=== PATIENT | male | born 1950 | race Caucasian/White ===

== ENCOUNTER 2018-02-05 08:11 | Day surgery (SDC) | payer OTHER ==
[~2018-02-05] VITALS: Ht 180.3 cm; Wt 147.4 kg
[~2018-02-05 08:11] MED LIST: ALBU90OI61 INH; AMLO10 PO; ASPI81CH PO; Aspir 8181 MG; CARV25 PO; CARV3.125; FINA5 PO; FURO20; FURO40 PO; GABA100; GABA800 PO; HYDCHL50 PO; Hair, Skin & N1 EACH PO; IBUP600 PO; IBUP800; KETOROLAC TROMET5 M1 RIGHTEYE; LOSA50 PO; METF500 PO; METFORMIN HCL500 M1 PO; NYST100TC; NYST100TC TOP; Omeprazole20 M1 PO; TERA5
== END 2018-02-05 12:10 | disposition home or self-care (01) ==
LOC: ORSCSDS 08:11
PROVIDERS: Ophthalmology
PROC: 080NXZZ Alteration of Right Upper Eyelid, External Approach (ICD-10-PCS; principal; 2018-02-05 10:00)
PROC: 080PXZZ Alteration of Left Upper Eyelid, External Approach (ICD-10-PCS; principal; 2018-02-05 10:00)
DX: H02.831 Dermatochalasis of right upper eyelid (principal); H02.834 Dermatochalasis of left upper eyelid; I10 Essential (primary) hypertension; G47.33 Obstructive sleep apnea (adult) (pediatric); E11.9 Type 2 diabetes mellitus without complications; E66.01 Morbid (severe) obesity due to excess calories; Z68.42 Body mass index [BMI] 45.0-49.9, adult
CPT/HCPCS: 82947; J2250; J7120

== ENCOUNTER 2018-11-10 18:36 | Emergency (ER) | payer OTHER ==
[~2018-11-10] VITALS: Ht 180.3 cm; Wt 149.7 kg
[2018-11-10 19:39] LABS: BASOPHILS ABSOLUTE AUTO 0.07 K/mm3 (0.00-0.23); BASOPHILS PERCENT AUTO 1 % (0-2); EOSINOPHILS ABSOLUTE AUTO 0.23 K/mm3 (0.00-0.68); EOSINOPHILS PERCENT AUTO 3 % (0-6); Hematocrit 39.8 % (37.0-53.0); Hemoglobin 13.3 g/dL (13.5-17.5); IMMATURE GRAN ABSOLUTE AUTO 0.02 K/mm3 (0.00-0.10); IMMATURE GRAN PERCENT AUTO 0 % (0-1); LYMPHOCYTES ABSOLUTE AUTO 2.03 K/mm3 (0.84-5.20); LYMPHOCYTES PERCENT AUTO 30 % (21-46); MONOCYTES ABSOLUTE AUTO 0.88 K/mm3 (0.16-1.47); MONOCYTES PERCENT AUTO 13 % (4-13); Mean Corpuscular HGB 31.4 pg (26.0-34.0); Mean Corpuscular HGB Conc 33.4 g/dL (31.5-36.5); Mean Corpuscular Volume 94 fL (80-100); Mean Platelet Volume 11.3 fL (9.1-12.4); NEUTROPHILS ABSOLUTE AUTO 3.54 K/mm3 (1.96-9.15); NEUTROPHILS PERCENT AUTO 52 % (41-73); Platelet Count 238 K/mm3 (150-400); RDW Coefficient Variation 13.5 % (11.7-14.2); RDW Standard Deviation 46.3 fL (35.1-46.3); Red Blood Cell Count 4.24 M/mm3 (4.30-5.90); White Blood Cell Count 6.77 K/mm3 (4.00-11.30)
[2018-11-10 19:57] LABS: Alanine Aminotransfer (ALT/SGP 28 U/L (12-78); Albumin, Blood 3.8 g/dL (3.4-5.0); Albumin/Globulin Ratio 1.1 (0.8-1.8); Alk Phos 59 U/L (50-136); Anion Gap 7 mmol/L (6-16); Aspartate Aminotrans (AST/SGOT 18 U/L (12-37); Bilirubin, Total 0.4 mg/dL (0.1-1.0); Blood Urea Nitrogen 20 mg/dL (8-24); Bun/Creatinine Ratio 24.7 (12.0-20.0); CO2, Blood 29 mmol/L (21-32); Calcium, Blood 9.8 mg/dL (8.5-10.1); Chloride, Blood 106 mmol/L (98-108); Creatinine, Blood 0.81 mg/dL (0.60-1.20); Globulin, Blood 3.6 g/dL (2.2-4.0); Glomerular Filtration Rate >60 (60-); Glucose, Blood 118 mg/dL (70-99); Potassium, Blood 3.4 mmol/L (3.5-5.5); Sodium, Blood 142 mmol/L (136-145); Total Protein, Blood 7.4 g/dL (6.4-8.2)
== END 2018-11-10 20:12 | disposition home or self-care (01) ==
LOC: ER 18:36
PROVIDERS: Physician Assistant
DX: S06.0X1A Concussion with loss of consciousness of 30 minutes or less, initial encounter (principal); S16.1XXA Strain of muscle, fascia and tendon at neck level, initial encounter; S00.83XA Contusion of other part of head, initial encounter; W01.198A Fall on same level from slipping, tripping and stumbling with subsequent striking against other object, initial encounter; J44.9 Chronic obstructive pulmonary disease, unspecified; E11.9 Type 2 diabetes mellitus without complications; I10 Essential (primary) hypertension; K21.9 Gastro-esophageal reflux disease without esophagitis; Z79.899 Other long term (current) drug therapy; Z79.84 Long term (current) use of oral hypoglycemic drugs; Z79.82 Long term (current) use of aspirin
CPT/HCPCS: 36415; 70450; 72125; 80053; 85025; 99284-25

== ENCOUNTER 2019-06-23 19:15 | Emergency (ER) | payer OTHER ==
[~2019-06-23] VITALS: Ht 177.8 cm; Wt 149.7 kg
[2019-06-23 19:53] LABS: BASOPHILS ABSOLUTE AUTO 0.07 K/mm3 (0.00-0.23); BASOPHILS PERCENT AUTO 1 % (0-2); EOSINOPHILS ABSOLUTE AUTO 0.17 K/mm3 (0.00-0.68); EOSINOPHILS PERCENT AUTO 2 % (0-6); Hematocrit 41.4 % (37.0-53.0); Hemoglobin 13.6 g/dL (13.5-17.5); IMMATURE GRAN ABSOLUTE AUTO 0.02 K/mm3 (0.00-0.10); IMMATURE GRAN PERCENT AUTO 0 % (0-1); LYMPHOCYTES ABSOLUTE AUTO 2.63 K/mm3 (0.84-5.20); LYMPHOCYTES PERCENT AUTO 33 % (21-46); MONOCYTES ABSOLUTE AUTO 0.95 K/mm3 (0.16-1.47); MONOCYTES PERCENT AUTO 12 % (4-13); Mean Corpuscular HGB 30.8 pg (26.0-34.0); Mean Corpuscular HGB Conc 32.9 g/dL (31.5-36.5); Mean Corpuscular Volume 94 fL (80-100); Mean Platelet Volume 11.4 fL (9.1-12.4); NEUTROPHILS ABSOLUTE AUTO 4.12 K/mm3 (1.96-9.15); NEUTROPHILS PERCENT AUTO 52 % (41-73); Platelet Count 228 K/mm3 (150-400); RDW Coefficient Variation 13.5 % (11.7-14.2); RDW Standard Deviation 46.9 fL (35.1-46.3); Red Blood Cell Count 4.42 M/mm3 (4.30-5.90); White Blood Cell Count 7.96 K/mm3 (4.00-11.30)
[2019-06-23] MEDS ORDERED: ACET500 PO (20:03)
[2019-06-23] MEDS ORDERED: PERIDEX15 ML PO (20:04)
[2019-06-23] MEDS ORDERED: Fish Oil 10001000 MG PO (20:05)
[2019-06-23] MEDS ORDERED: CYCL10 PO (20:05)
[2019-06-23] MEDS ORDERED: MELO7.5 PO (20:07)
[2019-06-23] MEDS ORDERED: HYDCHL50 PO (20:07)
[2019-06-23] MEDS ORDERED: TAMS.4ER PO (20:08)
[2019-06-23] MEDS ORDERED: XARELTO20 MG PO (20:08)
[2019-06-23] MEDS ORDERED: Hytrin2 MG PO (20:09)
[2019-06-23 20:10] LABS: Alanine Aminotransfer (ALT/SGP 26 U/L (12-78); Albumin, Blood 3.5 g/dL (3.4-5.0); Albumin/Globulin Ratio 0.8 (0.8-1.8); Alk Phos 64 U/L (50-136); Anion Gap 3 mmol/L (6-16); Aspartate Aminotrans (AST/SGOT 14 U/L (12-37); Bilirubin, Total 0.4 mg/dL (0.1-1.0); Blood Urea Nitrogen 17 mg/dL (8-24); Bun/Creatinine Ratio 20.9 (12.0-20.0); CO2, Blood 28 mmol/L (21-32); Calcium, Blood 8.8 mg/dL (8.5-10.1); Chloride, Blood 107 mmol/L (98-108); Creatinine, Blood 0.81 mg/dL (0.60-1.20); Globulin, Blood 4.3 g/dL (2.2-4.0); Glomerular Filtration Rate >60 (60-); Glucose, Blood 125 mg/dL (70-99); Sodium, Blood 138 mmol/L (136-145); Total Protein, Blood 7.8 g/dL (6.4-8.2); Troponin I <0.015 ng/mL (0.000-0.040)
== END 2019-06-23 21:40 | disposition home or self-care (01) ==
LOC: ER 19:15
PROVIDERS: Emergency Medicine
DX: R07.89 Other chest pain (principal); I10 Essential (primary) hypertension; J44.9 Chronic obstructive pulmonary disease, unspecified; E11.9 Type 2 diabetes mellitus without complications; K21.9 Gastro-esophageal reflux disease without esophagitis; Z79.82 Long term (current) use of aspirin; Z79.899 Other long term (current) drug therapy
CPT/HCPCS: 36415; 71046; 80053; 83690; 83880; 84484; 85025; 93005; 93010; 99285-25

== ENCOUNTER → 2019-06-26 | Outpatient (CLI) | payer OTHER ==
[~2019-06-26] MED LIST changes: +ACET500 PO; +CYCL10 PO; +Fish Oil 10001000 MG PO; +Hytrin2 MG PO; +MELO7.5 PO; +PERIDEX15 ML PO; +TAMS.4ER PO; +XARELTO20 MG PO
== END | disposition home or self-care (01) ==
LOC: LAB SHORT 16:28 → LAB 16:28
DX: N39.0 Urinary tract infection, site not specified (principal); R30.0 Dysuria
CPT/HCPCS: 87077; 87086; 87186

== ENCOUNTER 2019-06-29 09:11 | Day surgery (SDC) | payer OTHER ==
[~2019-06-29] VITALS: Ht 175.3 cm; Wt 150.0 kg
--- NOTE | 2019-06-29 10:05 | NUR ---
UNABLE TO VERIFY MEDICATIONS THAT PT IS CURRENTLY TAKING DUE TO PT NOT KNOWING THE NAMES OF ALL MEDICATIONS. PT HAS NO LIST AND DID NOT BRING PILL BOTTLES WITH HIM TODAY.
--- NOTE | 2019-06-29 13:48 | NUR ---
RIGHT WRIST TR BAND DEFLATED. BAND REMAINS ON WRIST. ARM BOARD ON FOR SUPPORT. VSS. PT DENIES PAIN. SITE APPEARS SOFT NON TENDER WITH NO ACTIVE BLEEDING OR OOZING NOTED. WILL CONTINUE TO MONITOR.
--- NOTE | 2019-06-29 14:15 | NUR ---
PT DRESSES SELF WITH MINIMAL ASSISTANCE. VSS. R RADIAL SITE REMAINS CLEAR. PT TR BAND REMOVED. DOT DRESSING APPLIED WITH SPLINT/SLING. IV DC'D. CATH INTACT. PRESSURE DSG APPLIED. PT DC TO HOME VIA WC BY ESCORT AND FAMILY
== END 2019-06-29 14:15 | disposition home or self-care (01) ==
LOC: MHTC 09:11
PROC: B201YZZ Plain Radiography of Multiple Coronary Arteries using Other Contrast (ICD-10-PCS; principal; 2019-06-29)
PROC: 4A023N7 Measurement of Cardiac Sampling and Pressure, Left Heart, Percutaneous Approach (ICD-10-PCS; principal; 2019-06-29)
PROC: B205YZZ Plain Radiography of Left Heart using Other Contrast (ICD-10-PCS; principal; 2019-06-29)
DX: I25.10 Atherosclerotic heart disease of native coronary artery without angina pectoris (principal); I48.91 Unspecified atrial fibrillation; I10 Essential (primary) hypertension; E11.41 Type 2 diabetes mellitus with diabetic mononeuropathy; E66.9 Obesity, unspecified; G47.33 Obstructive sleep apnea (adult) (pediatric); Z79.82 Long term (current) use of aspirin; Z79.899 Other long term (current) drug therapy; Z79.84 Long term (current) use of oral hypoglycemic drugs; Z87.891 Personal history of nicotine dependence; Z68.43 Body mass index [BMI] 50.0-59.9, adult; Z79.01 Long term (current) use of anticoagulants
CPT/HCPCS: 76937; 93458; 99152; 99153; C1769; C1894; J1644; J2250; J3010; J7030; Q9967

== ENCOUNTER → 2022-01-19 | Outpatient (CLI) | payer OTHER ==
[2022-01-19 15:20] LABS: Source, Urine Clean Catch
[2022-01-19 15:30] LABS: Bacteria Many /hpf; Red Blood Cells, Urine Not Seen /hpf (0-2); Squamous Epithelial Cells Rare /hpf (Few)
== END | disposition home or self-care (01) ==
LOC: LAB SHORT 15:18
PROVIDERS: General Practice
DX: R10.9 Unspecified abdominal pain (principal)
CPT/HCPCS: 81015; 87077; 87086; 87186

== ENCOUNTER 2023-06-11 20:15 | Inpatient (IN) | payer OTHER ==
[~2023-06-11] VITALS: Ht 177.8 cm; Wt 143.7 kg
[2023-06-12 01:12] LABS: BASOPHILS ABSOLUTE AUTO 0.08 K/mm3 (0.00-0.23); BASOPHILS PERCENT AUTO 1 % (0-2); EOSINOPHILS ABSOLUTE AUTO 0.28 K/mm3 (0.00-0.68); EOSINOPHILS PERCENT AUTO 3 % (0-6); Hemoglobin 14.4 g/dL (13.5-17.5); IMMATURE GRAN ABSOLUTE AUTO 0.02 K/mm3 (0.00-0.10); IMMATURE GRAN PERCENT AUTO 0 % (0-1); LYMPHOCYTES PERCENT AUTO 24 % (21-46); MONOCYTES ABSOLUTE AUTO 0.88 K/mm3 (0.16-1.47); MONOCYTES PERCENT AUTO 10 % (4-13); Mean Corpuscular HGB 30.6 pg (26.0-34.0); Mean Corpuscular Volume 96 fL (80-100); Mean Platelet Volume 11.4 fL (9.1-12.4); NEUTROPHILS ABSOLUTE AUTO 5.37 K/mm3 (1.96-9.15); NEUTROPHILS PERCENT AUTO 62 % (41-73); Platelet Count 270 K/mm3 (150-400); RDW Coefficient Variation 14.5 % (11.7-14.2); RDW Standard Deviation 50.3 fL (35.1-46.3); White Blood Cell Count 8.73 K/mm3 (4.00-11.30)
[2023-06-12 01:28] LABS: Albumin, Blood 3.3 g/dL (3.4-5.0); Albumin/Globulin Ratio 0.8 (0.8-1.8); Bilirubin, Total 0.8 mg/dL (0.1-1.0); Bun/Creatinine Ratio 18.2 (12.0-20.0); Calcium, Blood 9.3 mg/dL (8.5-10.1); Creatinine, Blood 0.77 mg/dL (0.60-1.20); Globulin, Blood 4.3 g/dL (2.2-4.0); Magnesium, Blood 1.9 mg/dL (1.6-2.4); Phosphorus, Blood 3.2 mg/dL (2.5-4.9); Potassium, Blood 4.4 mmol/L (3.5-5.5); Total Protein, Blood 7.6 g/dL (6.4-8.2)
[2023-06-12 01:39] LABS: D-Dimer, Quantitative 1.15 mg/L FEU (0.00-0.52); International Normalized Ratio 1.19; Prothrombin Time Results 12.4 Sec (9.7-11.5)
[2023-06-12 02:14] LABS: Influenza A, PCR NEGATIVE (NEGATIVE); Influenza B, PCR NEGATIVE (NEGATIVE); Resp Syncytial Virus, PCR NEGATIVE (NEGATIVE); SARS-Cov-2 (COVID-19) PCR, MMC NEGATIVE (NEGATIVE)
[2023-06-12 02:56] LABS: Source, Urine Clean Catch
[2023-06-12 03:06] LABS: Bilirubin, Urine Neg (Neg); Blood, Urine Neg (Neg); Glucose Qualitative, Urine Neg (Neg); Ketones, Urine Neg (Neg); Leukocyte Esterase, Urine Neg (Neg); Nitrite, Urine Neg (Neg); Protein, Urine 2+ (Neg); Urobilinogen, Urine NORM (Normal)
[2023-06-12 03:25] LABS: Appearance, Urine Clear (Clear); Color, Urine Yellow (P-Yellow)
[2023-06-12 03:27] LABS: Bacteria Few /hpf; Mucus Light (0-Heavy); Red Blood Cells, Urine 0-2 /hpf (0-2); Squamous Epithelial Cells Mod /hpf (Few); White Blood Cells, Urine 0-2 /hpf (0-5)
[2023-06-12 12:04] VITALS: BP 126/85
[2023-06-12 17:05] VITALS: BP 145/96
--- NOTE | 2023-06-12 18:39 | NUR ---
ADMIT NOTE/SHIFT SUMMARY PT ARRIVED TO PCU FROM ED VIA ED STRETCHER AT APPROX 0800. PT WAS SLID BY 4 STAFF FROM ED STRETCHER TO PCU BED. PT A&OX4. SP02>90% ON 4L NC UPON ARRIVAL. ABLE TO TITRATE TO 2L DURING SHIFT. PT SOB W/ EXERTION. REQUESTS HOB TO BE ELEVATED HIGH IT CAN. DUIRESING. TELEMETRY SHOWS AFIB, HR 100'S. CONDOM CATH APPLIED AND MULTIPLE BED CHANGES NEEDED SINCE LASIX GIVEN. DRAINING YELLOW URINE. NO BM THIS SHIFT. PT ECHO DONE THIS SHIFT. UP IN CHAIR PART OF DAY. PT HAS BLE WRAPPED IN MARIPOSA WRAPS AND DAVIDSON HOSE. THIS RN ASKED QUARANTINE OFFICER, CHLOÉ, TO TAKE A LOOK. CHLOÉ IN ROOM TO ASSESS. PT REFUSED TO LET STAFF UNWRAP BLE. [facility] PUT THEM ON 06/10 AND WILL WRAP THEM AGAIN NEXT FRIDAY. PT CURRENTLY SITTING ON SIDE OF BED, EATING DINNER. CALL LIGHT IN REACH.
[2023-06-12 20:08] VITALS: BP 130/72
--- NOTE | 2023-06-12 20:10 | NUR ---
ASSESSMENT/ASSUMED CARE PT SITTING UP IN BED WATCHING TV. PT DENIES PAIN OR DISCOMFORT AT THIS TIME. PT MOVING AROUND IN BED. LUNGS DECREASED THROUGHOUT ON 2 LITES O2 VIA NC. RT SPOKE WITH PT REGARDING CPAP, PT REFUSED AT THIS TIME DUE TO NOT HAVING HIS MASK. HEART RATE AFIB IN THE 80-120'S. BP STABLE. DENIES CHEST PAIN OR PRESSURE. BILAT LOWER EXT WRAPPED, PT REFUSING TO HAVE WRAPS REMOVED. STATES,"THERE IS MEDICATION IN THEM AND THE [facility] JUST CH[facility] THEM ON FRIDAY". PT REMINDED ABOUT FLUID RESTRICTION.
[2023-06-12 23:50] VITALS: BP 138/114
[2023-06-13 03:39] VITALS: BP 136/99
[2023-06-13 04:42] LABS: BASOPHILS ABSOLUTE AUTO 0.06 K/mm3 (0.00-0.23); BASOPHILS PERCENT AUTO 1 % (0-2); EOSINOPHILS ABSOLUTE AUTO 0.33 K/mm3 (0.00-0.68); EOSINOPHILS PERCENT AUTO 5 % (0-6); Hematocrit 44.2 % (37.0-53.0); Hemoglobin 13.9 g/dL (13.5-17.5); IMMATURE GRAN ABSOLUTE AUTO 0.02 K/mm3 (0.00-0.10); IMMATURE GRAN PERCENT AUTO 0 % (0-1); LYMPHOCYTES ABSOLUTE AUTO 1.62 K/mm3 (0.84-5.20); LYMPHOCYTES PERCENT AUTO 24 % (21-46); MONOCYTES ABSOLUTE AUTO 0.81 K/mm3 (0.16-1.47); MONOCYTES PERCENT AUTO 12 % (4-13); Mean Corpuscular HGB 30.4 pg (26.0-34.0); Mean Corpuscular HGB Conc 31.4 g/dL (31.5-36.5); Mean Corpuscular Volume 97 fL (80-100); Mean Platelet Volume 10.7 fL (9.1-12.4); NEUTROPHILS PERCENT AUTO 57 % (41-73); Platelet Count 248 K/mm3 (150-400); RDW Coefficient Variation 14.3 % (11.7-14.2); RDW Standard Deviation 50.6 fL (35.1-46.3); Red Blood Cell Count 4.57 M/mm3 (4.30-5.90); White Blood Cell Count 6.64 K/mm3 (4.00-11.30)
--- NOTE | 2023-06-13 05:04 | NUR ---
CONDOM CATH CAME OFF. PT UP TO CHAIR. LINEN CHANGE DONE. MARA CARE DONE. PT BACK TO BED. NEW CONDOM CATH PLACED. PT TOLERTED WELL. WARM BLANKETS APPLIED TO PT.
[2023-06-13 05:06] LABS: Albumin/Globulin Ratio 0.8 (0.8-1.8); Bilirubin, Total 0.7 mg/dL (0.1-1.0); Bun/Creatinine Ratio 16.6 (12.0-20.0); Calcium, Blood 9.4 mg/dL (8.5-10.1); Creatinine, Blood 0.9 mg/dL (0.60-1.20); Magnesium, Blood 2.2 mg/dL (1.6-2.4); Potassium, Blood 4.1 mmol/L (3.5-5.5)
--- NOTE | 2023-06-13 05:24 | NUR ---
SHIFT SUMMARY PT AWAKE, SITTING UP IN BED WATCHING TV. CONDOM CATH REPLACED. PT REFUSED CPAP DURING THE NIGHT. RT PLACED ON HIGH FLOW NC AT 6 LITERS DUE TO APNEA WHILE SLEEPING AND SPO2 DOWN INTO THE 70'S. SPO2 STAYED ABOVE 90 WHILE SLEEPING WITH HIGH FLOW AT 6 LITERS. PT CONT AFIB IN THE 90- 120'S. BP STABLE. TURNING AND MOVING SELF IN BED. REPORT TO ON COMING NURSE
[2023-06-13 07:53] VITALS: BP 122/109
[2023-06-13 12:23] VITALS: BP 117/79
[2023-06-13 15:34] VITALS: BP 103/67
--- NOTE | 2023-06-13 18:16 | NUR ---
SHIFT SUMMARY THE PT IS A&OX4, 1P SBA W/ A CANE FOR TRANSFER, ACHS, AND HE CALLS APPROPRIATELY. HE PT WILL BE NPO AT 0000 FOR THE SECOND PART OF HIS STRESS TEST TOMORROW. HE CAN NOT HAVE ANY CAFFIENE. 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 AT HOME HE HAS A NOSTRIL MASK CPAP. THE PT DID HAVE HIS UNNA WRAPS REPLACED TODAY BECAUSE HE WAS HAVING PAIN/DISCOMOFT IN BLE. HE USUALLY GOES TO THE A WEEKLY TO HAVE THEM CHANGED. DR. SMITH ORDERED A WOUND CONSULT, BUT WE DO NOT HAVE WOUND NURSES ON THIS WEEKEND. THE PT HAD ONE EVENT THIS MORNING WHERE HE GOT VERY SOB, DIAPHORETIC, AND PALE. I WAS GIVING THE PT LASIX AT THE TIME. I ONLY PUSHED 20MG OVER 1.5MINS WHEN THIS HAPPENED. VS STABLE. I HAD MY CHARGE NURSE COME LAY EYES ON THE PT. SHE STATED TO CONTINUE TO GIVE THE LASIX. THE PT RECOVERED AFTER A COUPLE HOURS. THE PT HAS CHRONIC SOB. NO FURTHER EVENTS. SEE NOTES FOR ANY MORE UPDATES
[2023-06-13 20:23] VITALS: BP 120/74
[2023-06-13 23:56] VITALS: BP 122/89
--- NOTE | 2023-06-14 05:02 | NUR ---
SHIFT SUMMARY ASSUMED CARE OF PT AT 1900. PT IS A/OX4. HEART SOUNDS REGULAR. LUNG SOUNDS HAVE SOME CRACKLES AT BASES. PT C.O NOT BEING ABLE TO SLEEP THIS NOC. PT STATES HE WAS HAVING A PANIC ATTACK. HE THOUGHT THAT HE WAS AT HOME AND WAS CALLING OUT TO HIS WHO PASSED THIS LAST OCTOBER. PT TEARFUL AND WANTED TO SLEEP IN RECLINER. NO OTHER COMPLAITNS, PT NPO SINCE MIDNIGHT.
[2023-06-14 05:21] VITALS: BP 109/77
[2023-06-14 07:07] VITALS: BP 116/94
[2023-06-14 08:50] VITALS: BP 118/83
[2023-06-14 11:28] VITALS: BP 123/98
[2023-06-14 15:39] VITALS: BP 122/96
--- NOTE | 2023-06-14 16:26 | NUR ---
SHIFT SUMMARY PT IS A&OX4, CALLS APPROPRIATELY, AND HAS BEEN VERY COOPERATIVE THIS SHIFT. THE PT HAD THE SECOND PART OF HIS STRESS TEST THIS MORNING. ON TELE HE HAS BEEN AFIB 90'S-100'S AND DENIES ANY ANIGNA OR CHEST PRESSURE. THE PT HAS BEEN ON RA MOST OF THE DAY BUT HAS PERIODICALLY BEEN ON 3L NC WHEN FEELING SOB. THE PT PREFERS TO SIT UP IN THE CHAIR SO HE DOES NOT FEEL SOB. HE HAS HAD NO ACUTE EVENTS. DR. CROSS EVALUATED THE PT TODAY AND STATED THAT HE WILL NEED A HOME O2 EVALUATION AND TALKED ABOUT POSSIBLE DISCHARGE TOMORROW. THE PT WAS MADE MEDICAL STATUS WITH TELE. SEE NOTES FOR ANY UPDATES. HIS CARE HAS BEEN HANDED OFF TO VIC HUTCHINSON.
[2023-06-14 20:00] VITALS: BP 111/75
[2023-06-15 03:30] VITALS: BP 130/95
--- NOTE | 2023-06-15 05:03 | NUR ---
SHIFT SUMMARY PT REMAINS A&O X 4, ALTHOUGH SOME PERIODS OF FORGETFULNESS NOTED. PT PLEASANT AND COOPERATIVE WITH CARE. NO ACUTE CHANGES THIS SHIFT. VSS; SBP 120'S, HR SR/ST WITH RATE IN 90 - 100'S, ON 2 LPM NC SPO2 >94%. PT AFEBRILE DURING SHIFT. PT STATES HE IS READY TO GO HOME AND IS 'FEELING BETTER'. PT UP IN RECLINER MOST OF THE SHIFT, PT REPORTS AT HOME HE MOSTLY SLEEPS IN HIS RECLINER WELL. F.R. MET FOR NOC SHIFT. CONDOM CATHETER IN PLACE. NO BM THIS SHIFT. CALL LIGHT IN REACH, WILL UPDATE ONCOMING RN
[2023-06-15 05:28] LABS: Albumin, Blood 3.2 g/dL (3.4-5.0); Anion Gap 3 mmol/L (6-16); Blood Urea Nitrogen 19 mg/dL (8-24); Bun/Creatinine Ratio 22.8 (12.0-20.0); CO2, Blood 32 mmol/L (21-32); Calcium, Blood 9.7 mg/dL (8.5-10.1); Chloride, Blood 106 mmol/L (98-108); Creatinine, Blood 0.83 mg/dL (0.60-1.20); Glomerular Filtration Rate 92 (60-); Glucose, Blood 150 mg/dL (70-99); Phosphorus, Blood 3.4 mg/dL (2.5-4.9); Potassium, Blood 3.9 mmol/L (3.5-5.5); Sodium, Blood 141 mmol/L (136-145)
[2023-06-15 07:25] VITALS: BP 125/87
[2023-06-15] MEDS ORDERED: ALEVAZOL56.7 G1 TOP (09:31)
[2023-06-15] MEDS ORDERED: MULTIPLE VITAM1 EACH PO (09:32)
[2023-06-15] MEDS ORDERED: METO25ER PO (09:33)
[2023-06-15] MEDS ORDERED: ELIQUIS5 M2 PO (09:33)
[2023-06-15] MEDS ORDERED: ZOCOR20 MG PO (09:34)
[2023-06-15] MEDS ORDERED: HYDHCL25 PO (09:35)
[2023-06-15] MEDS ORDERED: PREG75 PO (09:35)
[2023-06-15] MEDS ORDERED: JARDIANCE10 MG PO (10:33)
[2023-06-15] MEDS ORDERED: FURO20 PO (10:33)
[2023-06-15 11:46] VITALS: BP 112/90
--- NOTE | 2023-06-15 12:21 | NUR ---
MORNING SUMMARY PT HAS BEEN A&OX4, CALLS APPRORPRIATELY, AND MAKES HIS NEEDS KNOWN. THE PT WILL BE DISCHARGING THIS AFTERNOON. HE HAS BEEN ON ROOM AIR ALL DAY AND HAD A HOEM O2 EVALUATION WITH TELMA FROM RT. HE DID NOT REQUIRE ANY OXYGEN FROM THIS EVALUATION. HE HAS BEEN ON TELEMETRY UNTIL ABOUT 1200 WHEN THE PT RIPPED OFF HIS TELE AND REFUSES TO PUT IT BACK ON BECAUSE HIS RIDE IS GOING TO BE PICKING HIM UP ABOUT 1230. HE HAS BEEN AFIB 90'S-100'S ON TELE. THIS MORNING HE WAS RESTING IN THE CHIAR AND HAD A 7 BEAT RUN OF VTACH REPORTED BY TELEMETRY. THE PT WAS SYMPTOMATIC. NO OTHER EVENTS. WE ARE AWAITING TRANSPORT AT THIS TIME,
--- NOTE | 2023-06-15 12:41 | NUR ---
Met with pt at bedside. He is up in a chair eating lunch. He appears alert, oriented. He was agreeable to speak with me, but declined to discuss or fill out a POLST. Stated his wishes are "all on [facility] with the [facility]". He tells me he has a daughter named Lian who calls to check in on him, but she is rarely available in person as she works "a crazy amount of hours". He tells me he is eager to go home today, and I asked him about medication changes. He quickly stated he isn't going to worry about the changes today, and will be ordering new medications through the [facility] on friday. When I asked if he knows what medications he's on, he changed the subject, became tearful and talked about his dying at home in October2022 after a long lovett with dementia. He then shifted to being grateful for BOUCHRA Donato, contracted with the [facility] via [facility] [employer] as a 22 hour/week caregiver. He states she helps keep him on track, does grocery shopping, etc. He gave me permission to call Kinga, and she reports he is alert but forgetful, and more often than not, Conrado has not taken his morning medications when Kinga arrived. She voices concerns, which I encouraged her to report to her agency. I told her I would also reach out to [facility] at the [facility], see if there is some additional help for this . In the meantime, I have requested POLST and AD from [place] via fax, and will fax request for [facility] as well.
--- NOTE | 2023-06-15 12:55 | NUR ---
PT DISCHARGED AT 1253, IV DISCHARGED W/O ANY ISSUES. DISCHARGE INFORMATION WENT OVER WITH THE PT AND QUESTIONS ANSWERED. ALL BELONINGS SENT HOME WITH THE PT.
== END 2023-06-15 12:53 | disposition home health service (06) | DRG 291 ==
LOC: ER 20:15 → PCU 06-12 05:16
PROVIDERS: Emergency Medicine; Internal Medicine; ADMIT Internal Medicine
PROC: 5A09357 Assistance with Respiratory Ventilation, Less than 24 Consecutive Hours, Continuous Positive Airway Pressure (ICD-10-PCS; principal; 2023-06-12)
DX: I11.0 Hypertensive heart disease with heart failure (principal); I50.21 Acute systolic (congestive) heart failure; J96.01 Acute respiratory failure with hypoxia; I48.20 Chronic atrial fibrillation, unspecified; Z68.42 Body mass index [BMI] 45.0-49.9, adult; I42.8 Other cardiomyopathies; E66.01 Morbid (severe) obesity due to excess calories; G47.33 Obstructive sleep apnea (adult) (pediatric); E11.9 Type 2 diabetes mellitus without complications; J44.9 Chronic obstructive pulmonary disease, unspecified; I87.8 Other specified disorders of veins; I48.0 Paroxysmal atrial fibrillation; M19.90 Unspecified osteoarthritis, unspecified site; N40.0 Benign prostatic hyperplasia without lower urinary tract symptoms; K21.9 Gastro-esophageal reflux disease without esophagitis; Z79.01 Long term (current) use of anticoagulants; Z79.899 Other long term (current) drug therapy; Z11.52 Encounter for screening for COVID-19; Z79.84 Long term (current) use of oral hypoglycemic drugs; Z98.42 Cataract extraction status, left eye; Z98.41 Cataract extraction status, right eye; Z90.89 Acquired absence of other organs; Z98.890 Other specified postprocedural states
CPT/HCPCS: 0241U; 36415; 71046; 71260; 78452; 80053; 80069; 81001; 82947; 83036; 83605; 83735; 83880; 84100; 84145; 84443; 84484; 85025; 85379; 85610; 87070; 87205; 93005; 93010; 93017; 94640; 94664; 94760; 94761; 94762; 96365; 96367; 99285-25; A9270; A9500; C8929; J0456; J0696; J0706; J1650; J1940; J2785; J7050; Q9957; Q9967

== ENCOUNTER 2023-11-19 16:41 | Inpatient (IN) | payer OTHER ==
[~2023-11-19] VITALS: Ht 172.7 cm; Wt 113.4 kg
[~2023-11-19 16:41] MED LIST changes: +ALEVAZOL56.7 G1 TOP; +ELIQUIS5 M2 PO; +FURO20 PO; +HYDHCL25 PO; +JARDIANCE10 MG PO; +METO25ER PO; +MULTIPLE VITAM1 EACH PO; +PREG75 PO; +SPIR25 PO; +ZOCOR20 MG PO
[2023-11-19 17:58] LABS: BASOPHILS ABSOLUTE AUTO 0.05 K/mm3 (0.00-0.23); BASOPHILS PERCENT AUTO 1 % (0-2); EOSINOPHILS ABSOLUTE AUTO 0.14 K/mm3 (0.00-0.68); EOSINOPHILS PERCENT AUTO 2 % (0-6); Hematocrit 44.6 % (37.0-53.0); Hemoglobin 14.8 g/dL (13.5-17.5); IMMATURE GRAN ABSOLUTE AUTO 0.02 K/mm3 (0.00-0.10); IMMATURE GRAN PERCENT AUTO 0 % (0-1); LYMPHOCYTES ABSOLUTE AUTO 1.65 K/mm3 (0.84-5.20); LYMPHOCYTES PERCENT AUTO 19 % (21-46); MONOCYTES ABSOLUTE AUTO 1.44 K/mm3 (0.16-1.47); MONOCYTES PERCENT AUTO 17 % (4-13); Mean Corpuscular HGB 30.5 pg (26.0-34.0); Mean Corpuscular HGB Conc 33.2 g/dL (31.5-36.5); Mean Corpuscular Volume 92 fL (80-100); Mean Platelet Volume 10.4 fL (9.1-12.4); NEUTROPHILS ABSOLUTE AUTO 5.37 K/mm3 (1.96-9.15); NEUTROPHILS PERCENT AUTO 62 % (41-73); Platelet Count 291 K/mm3 (150-400); RDW Coefficient Variation 12.9 % (11.7-14.2); RDW Standard Deviation 43.5 fL (35.1-46.3); Red Blood Cell Count 4.86 M/mm3 (4.30-5.90); White Blood Cell Count 8.67 K/mm3 (4.00-11.30)
[2023-11-19 18:16] LABS: Alanine Aminotransfer (ALT/SGP 16 U/L (12-78); Albumin, Blood 2.7 g/dL (3.4-5.0); Albumin/Globulin Ratio 0.6 (0.8-1.8); Alk Phos 74 U/L (50-136); Anion Gap 6 mmol/L (3-11); Aspartate Aminotrans (AST/SGOT 16 U/L (12-37); Bilirubin, Total 0.5 mg/dL (0.1-1.0); Blood Urea Nitrogen 15 mg/dL (8-24); Bun/Creatinine Ratio 21.6 (12.0-20.0); CO2, Blood 29 mmol/L (21-32); Calcium, Blood 9.2 mg/dL (8.5-10.1); Chloride, Blood 107 mmol/L (98-108); Creatinine, Blood 0.69 mg/dL (0.60-1.20); Ethanol (Alcohol), Blood, Med <3 mg/dL; Globulin, Blood 4.5 g/dL (2.2-4.0); Glomerular Filtration Rate 97 (60-); Glucose, Blood 178 mg/dL (70-99); Sodium, Blood 138 mmol/L (136-145); Total Protein, Blood 7.2 g/dL (6.4-8.2)
[2023-11-19 18:17] LABS: Source, Urine Clean Catch
[2023-11-19 18:49] LABS: Appearance, Urine Hazy (Clear); Bilirubin, Urine Neg (Neg); Blood, Urine 3+ (Neg); Color, Urine Yellow (P-Yellow); Glucose Qualitative, Urine Neg (Neg); Ketones, Urine Neg (Neg); Leukocyte Esterase, Urine 2+ (Neg); Nitrite, Urine Pos (Neg); Protein, Urine 2+ (Neg); Specific Gravity, Urine 1.025 (1.003-1.022); Urobilinogen, Urine NORM (Normal)
[2023-11-19 19:20] LABS: Amorphous Light (0-Heavy); Bacteria Many /hpf; Hyaline Casts 0-2 /lpf (0-2); Mucus Mod (0-Heavy); Squamous Epithelial Cells Rare /hpf (Few); Transitional Epithelial Cells Rare /hpf (0-Rare); White Blood Cells, Urine 25-50 /hpf (0-5)
[2023-11-19] MEDS ORDERED: CefTRIAXone 500 MG Vial IM ONE (20:05)
[2023-11-19] MEDS ORDERED: NS 1,000 ML IV ONE (21:35)
[2023-11-19] MEDS ORDERED: HyDROXyzine HCl 25 MG Tab PO PRN (22:15)
[2023-11-19] MEDS ORDERED: NS 1,000 ML IV SCH (23:35)
[2023-11-20] VITALS (7 sets, daily range): BP systolic 95–156; BP diastolic 65–99
--- NOTE | 2023-11-20 01:04 | NUR ---
ADMIT NOTE PT ARRIVES TO ROOM FROM ED AT 0010. PT MOVED FROM ED GURNEY TO BED WITH HELP OF CLIENT EVALUATOR AND SLIDER SHEET. BED CHANGE AND BRIEF CHANGE DONE AT THIS TIME. CREAM APPLIED TO PT'S BOTTOM AND SCROTUM AREA. PT HAS RED, EXCORIATED SKIN TO HIS BOTTOM AND SCROTUM. PT HAS SCABS TO BILATERAL LOWER SHINS. PTS LOWER LEGS ARE ALSO BROWN AND DISCOLORED.
--- NOTE | 2023-11-20 04:25 | NUR ---
SHIFT SUMMARY THIS WIND FIELD SERVICE MANAGER ASSUMED CARE DURING THIS SHIFT. PT.IS A&O X4, ABLE TO MAKE HIS NEEDS KNOWN. PT. HAS BEDSIDE URINAL AND REPORTS HAVING URGENCY TO URINATE OFTEN. PT. WEARING A SOFT NECKBRACE FOR COMFORT. PT USING C-PAP FROM RT. PT.DENIES PAIN, SOB, N/V. NO ACUTE EVENTS DURING THIS SHIFT. WILL HANDOFF TO THE INCOMING SHIFT NURSE. BED AT THE LOWEST POSITION, CALL LIGHT IN REACH.
[2023-11-20] MEDS ORDERED: Insulin Human Lispro 100 Units/ML 3ML Syringe SC SCH (07:30)
[2023-11-20] MEDS ORDERED: Finasteride 5 MG Tab PO SCH (09:00)
[2023-11-20] MEDS ORDERED: Losartan Potassium 50 MG Tab PO SCH (09:00)
[2023-11-20] MEDS ORDERED: Pregabalin 75 MG Cap PO SCH (09:00)
[2023-11-20] MEDS ORDERED: Apixaban 5 MG Tab PO SCH (09:00)
[2023-11-20] MEDS ORDERED: CefTRIAXone Sodium 1,000 MG in NS 100 ML IV SCH (09:00)
[2023-11-20] MEDS ORDERED: Metoprolol Succinate 50 MG TABCR PO SCH (09:00)
[2023-11-20] MEDS ORDERED: Acetaminophen 500 MG Tab PO PRN (09:40)
[2023-11-20] MEDS ORDERED: Nystatin 100,000 Unit/GM CREAM 15 GM TOP SCH (10:57)
[2023-11-20] MEDS ORDERED: Empagliflozin 10 MG TAB PO SCH (12:00)
--- NOTE | 2023-11-20 17:33 | NUR ---
SHIFT SUMMARY PT A&OX4, VSS, TOLERATING PO, VOIDING, AND PAIN MANAGED PER EMAR. PT WORKED W/ PHYSICAL THERAPY THIS AM AND WAS ABLE TO SIT AT THE EDGE OF THE BED. PT'S GROIN AND COCCYX RED AND EXCORIATED, CONDOM CATH ATTEMPTED AND UNSUCCESSFUL DUE TO DIAPHORESIS. PT C/O PAIN X1 THAT WAS MEDICATED PER EMAR. NO OTHER ACUTE CHANGES. CALL LIGHT WITHIN REACH AND PT ABLE TO MAKE NEEDS KNOWN.
[2023-11-20] MEDS ORDERED: Spironolactone 12.5 MG TAB PO SCH (21:00)
[2023-11-20] MEDS ORDERED: Atorvastatin 10 MG Tab PO SCH (21:00)
[2023-11-20] MEDS ORDERED: DOCU100 PO (23:35)
[2023-11-20] MEDS ORDERED: MELATONIN5 M1 PO (23:35)
[2023-11-20] MEDS ORDERED: ACET325 PO (23:39)
[2023-11-20] MEDS ORDERED: Aspir 8181 MG PO (23:40)
[2023-11-20] MEDS ORDERED: ACET500 PO (23:41)
--- NOTE | 2023-11-21 04:01 | NUR ---
SHIFT SUMMARY ADMITTED FOR UTI/WEAKNESS. FULL CODE. IV ANTIB RX ARE SCHEDULED. IV FLUIDS INFUSING. VA PATIENT. ADA DIET. AC CBG'S - LOW SS. BEDREST. HE HAS BEEN TOO WEAK TO STAND. PHYSICAL THERAPY IS ORDERED. HE USES A CPAP AT NIGHT, BUT INFORMS ME IS NOT ALWAYS COMPLIANT AT HOME. HE DOES DESATURATE TO THE 70'S % WHEN HE FALLS ASLEEP AT TIMES. HE IS A&O X3-4. HE IS ON ELIQUIS. HIS GROIN AREA IS EXCORIATED, NYSTATIN CREAM IS ORDERED. HIS DAUGHTER MARIANNE WOULD LIKE A CALL AFTER 1:30 PM IF POSSIBLE, HER NUMBER IS IN FRONT OF HARD COPY CHART.
[2023-11-21 04:38] VITALS: BP 127/88
[2023-11-21 05:27] LABS: BASOPHILS ABSOLUTE AUTO 0.06 K/mm3 (0.00-0.23); BASOPHILS PERCENT AUTO 1 % (0-2); EOSINOPHILS ABSOLUTE AUTO 0.24 K/mm3 (0.00-0.68); EOSINOPHILS PERCENT AUTO 3 % (0-6); Hematocrit 42.7 % (37.0-53.0); Hemoglobin 13.8 g/dL (13.5-17.5); IMMATURE GRAN ABSOLUTE AUTO 0.03 K/mm3 (0.00-0.10); IMMATURE GRAN PERCENT AUTO 0 % (0-1); LYMPHOCYTES ABSOLUTE AUTO 2.13 K/mm3 (0.84-5.20); LYMPHOCYTES PERCENT AUTO 27 % (21-46); MONOCYTES ABSOLUTE AUTO 0.93 K/mm3 (0.16-1.47); MONOCYTES PERCENT AUTO 12 % (4-13); Mean Corpuscular HGB 29.8 pg (26.0-34.0); Mean Corpuscular HGB Conc 32.3 g/dL (31.5-36.5); Mean Corpuscular Volume 92 fL (80-100); Mean Platelet Volume 10.6 fL (9.1-12.4); NEUTROPHILS ABSOLUTE AUTO 4.63 K/mm3 (1.96-9.15); NEUTROPHILS PERCENT AUTO 58 % (41-73); Platelet Count 270 K/mm3 (150-400); RDW Coefficient Variation 12.9 % (11.7-14.2); RDW Standard Deviation 43.8 fL (35.1-46.3); Red Blood Cell Count 4.63 M/mm3 (4.30-5.90); White Blood Cell Count 8.02 K/mm3 (4.00-11.30)
[2023-11-21 05:48] LABS: Bun/Creatinine Ratio 20.4 (12.0-20.0); Calcium, Blood 8.6 mg/dL (8.5-10.1); Creatinine, Blood 0.73 mg/dL (0.60-1.20); Potassium, Blood 3.9 mmol/L (3.5-5.5)
--- NOTE | 2023-11-21 05:48 | NUR ---
REFUSED 0600 MEDS HE DID REFUSE HIS PEPCID AND THYROID MEDS THIS MORNING. HE STATED THAT HE NEVER TAKES THOSE THIS EARLY.
[2023-11-21 07:20] VITALS: BP 113/93
[2023-11-21 15:47] VITALS: BP 128/87
--- NOTE | 2023-11-21 18:16 | NUR ---
SHIFT SUMMARY PT AOX4, BR. 2P WHILE MOVING IN BED. INCONTIENENT AND HAS VOIDED OFTEN. BRIEF AND BEDDING CHANGED NEEDED. REPOSITIONED T/O THE SHIFT. PT HAS REFUSED CBG CHECKS THIS SHIFT, PROVIDER IS AWARE. CALLS AND MAKES HIS NEEDS KNOWN. NO ACUTE CHANGED OR COMPLAINTS. CALL LIGHT WITHIN REACH, BED LOCKED AND IN THE LOWEST POSITION. WILL REPORT TO ONCOMING NURSE.
[2023-11-21 19:19] VITALS: BP 136/103
[2023-11-22 03:33] VITALS: BP 155/88
--- NOTE | 2023-11-22 04:05 | NUR ---
SHIFT SUMMARY ADMITTED FOR UTI/WEAKNESS. FULL CODE. IV FLUIDS INFUSING, IV ANTIB RX ARE SCHEDULED. PHYSICAL THERAPY IS ORDERED. [facility] PATIENT. ADA DIET - AC CBG'S, LOW SS. ON ELIQUIS. CPAP @ . OF CHF. CONTINENT/INCONTINENT. HE IS TOO WEAK TO STAND OR WALK STILL.
[2023-11-22 06:45] LABS: Calcium, Blood 8.9 mg/dL (8.5-10.1); Creatinine, Blood 0.68 mg/dL (0.60-1.20); Potassium, Blood 4.1 mmol/L (3.5-5.5)
[2023-11-22 07:27] VITALS: BP 126/84
--- NOTE | 2023-11-22 10:50 | NUR ---
A/O X 4 PLEASENT COOPERATIVE WITH CARE VSS. PT INTO SEE PATIENT, EXERCISES DONE IN BED PT NOT WILLING TO GET UP. ONCE LAYING DOWN BARRIER CRREAM APPLIED TO SORE BUTTOCKS
[2023-11-22 15:52] VITALS: BP 146/90
[2023-11-22 19:15] VITALS: BP 115/81
--- NOTE | 2023-11-23 04:04 | NUR ---
SHIFT SUMMARY: Pt is admitted for UTI and is a full code. Is alert and able to make needs known. ADLs have been 1p. But did not get out of bed. Denies pain or discomfort when asked.
[2023-11-23 04:38] VITALS: BP 136/99
[2023-11-23 06:07] LABS: BASOPHILS ABSOLUTE AUTO 0.08 K/mm3 (0.00-0.23); BASOPHILS PERCENT AUTO 1 % (0-2); EOSINOPHILS ABSOLUTE AUTO 0.26 K/mm3 (0.00-0.68); EOSINOPHILS PERCENT AUTO 4 % (0-6); Hematocrit 43.6 % (37.0-53.0); Hemoglobin 14.3 g/dL (13.5-17.5); IMMATURE GRAN ABSOLUTE AUTO 0.03 K/mm3 (0.00-0.10); IMMATURE GRAN PERCENT AUTO 0 % (0-1); LYMPHOCYTES ABSOLUTE AUTO 2.37 K/mm3 (0.84-5.20); LYMPHOCYTES PERCENT AUTO 34 % (21-46); MONOCYTES ABSOLUTE AUTO 0.68 K/mm3 (0.16-1.47); MONOCYTES PERCENT AUTO 10 % (4-13); Mean Corpuscular HGB 29.8 pg (26.0-34.0); Mean Corpuscular HGB Conc 32.8 g/dL (31.5-36.5); Mean Corpuscular Volume 91 fL (80-100); Mean Platelet Volume 10.6 fL (9.1-12.4); NEUTROPHILS ABSOLUTE AUTO 3.49 K/mm3 (1.96-9.15); NEUTROPHILS PERCENT AUTO 51 % (41-73); Platelet Count 283 K/mm3 (150-400); RDW Coefficient Variation 12.5 % (11.7-14.2); RDW Standard Deviation 41.4 fL (35.1-46.3); White Blood Cell Count 6.91 K/mm3 (4.00-11.30)
[2023-11-23 06:38] LABS: Bun/Creatinine Ratio 18.8 (12.0-20.0); Calcium, Blood 8.7 mg/dL (8.5-10.1); Creatinine, Blood 0.69 mg/dL (0.60-1.20)
[2023-11-23 07:17] VITALS: BP 117/81
[2023-11-23 15:02] VITALS: BP 148/94
--- NOTE | 2023-11-23 17:15 | NUR ---
REPORT RECEIVED VERIFIED PT A/O X4 STATES HE JUST DOESNT FEEL VERY WELL, WAS NOTIFIED AND CAME AND SAT WITH PT. PT BEGAN TO FEEL BETTER THROUGHOUT THE EVENING AND EVENTUALLY RETURNED TO BASELINE, PT CHANGED EVERY 2 HOURS AND REPOSITIONED WHEN NEEDED. DAUGHTER AT BEDSIDE WILL CONT MONITORING PT
[2023-11-23 19:41] VITALS: BP 152/114
[2023-11-23 20:41] VITALS: BP 148/84
--- NOTE | 2023-11-24 06:15 | NUR ---
SHIFT SUMMARY: Pt is admitted for UTI and is a full code. Is alert and able to make needs known. ADLs have been 2p but did not get out of bed during shift. Denies pain or discomfort when asked.
[2023-11-24 08:10] VITALS: BP 140/91
[2023-11-24 08:21] LABS: Hematocrit 44.6 % (37.0-53.0); Hemoglobin 14.8 g/dL (13.5-17.5); Mean Corpuscular HGB 30.3 pg (26.0-34.0); Mean Corpuscular HGB Conc 33.2 g/dL (31.5-36.5); Mean Corpuscular Volume 91 fL (80-100); Mean Platelet Volume 10.2 fL (9.1-12.4); Platelet Count 301 K/mm3 (150-400); RDW Coefficient Variation 12.5 % (11.7-14.2); RDW Standard Deviation 42.4 fL (35.1-46.3); Red Blood Cell Count 4.88 M/mm3 (4.30-5.90); White Blood Cell Count 9.26 K/mm3 (4.00-11.30)
[2023-11-24 08:43] LABS: Bun/Creatinine Ratio 22.7 (12.0-20.0); Calcium, Blood 9.1 mg/dL (8.5-10.1); Creatinine, Blood 0.71 mg/dL (0.60-1.20); Potassium, Blood 4.3 mmol/L (3.5-5.5)
[2023-11-24 11:59] VITALS: BP 121/82
--- NOTE | 2023-11-24 16:23 | NUR ---
REPORT RECEIVED VERIFIED PT IN A DEEP SLEEP AND SATURATION FALLS TO 65% AT TIMES WITH QICK RECOVERY. PT EASILY AWOKEN AND ABLE TO FOLLOW COMMANDS. EXPLAINED TO PT NEED TO USE CPAP BUT DENIED OUR MACHINE. FRIEND OR FAMILY TO BRING IN PPERSONAL. MD NOTIFIED OF DEVIN EVENTS HAPPENING AND THEN I PLACED PT ON 2 L NC WHICH SO FAR HAS HELPED WITH DECREASING O2. MD AWARE OF PAIN AND REFUSAL TO GET OUT OF BED WITH PT. PT TOO WEEK AND TOO SORE. PT IN AGAIN TO WORK WITH PT, WILL CONT MONITORING
[2023-11-24 20:06] VITALS: BP 101/77
--- NOTE | 2023-11-25 01:25 | NUR ---
11/24/232045 PT LYING IN BED, REPORTS CHEST TIGHTNESS, THINKS IT IS REPIRATORY RELATED, WANTS TO SEE IF A CXR WAS DONE OR COULD BE ORDERED. DENIES SOB BUT IS ON 1 1/2 L NX AT 97%, USES 3 L NC PRN AT HOME. WILL CHECCK PT'S CHART FOR CXR AND ASK FOR ONE FROM THE DR IS ONE HAS NOT BEEN DONE. PT ALSO REQUESTING COUGH SYRUP THAT IS NOT ORDERED AT THIS TIME. WILL F/U ON THAT WELL. NO OTHER APPARENT SIGNS OF DISTRESS. CALL LIGHT IS IN REACH.
--- NOTE | 2023-11-25 01:29 | NUR ---
0000 PT LYING IN BED, EYES CLOSED, APPEARS TO BE RESTING. BREATHING IS EVEN, UNLABORED. NO APPARENT SIGNS OF DISTRESS. CALL LIGHT IS IN REACH.
--- NOTE | 2023-11-25 01:29 | NUR ---
11/24/23 2200 PT LYING IN BED, EYES CLOSED, APPEARS TO BE RESTING. BREATHING IS EVEN, UNLABORED. NO APPARENT SIGNS OF DISTRESS. CALL LIGHT IS IN REACH.
[2023-11-25] MEDS ORDERED: Magnesium Hydroxide Conc 10 ML UDC PO PRN (02:20)
[2023-11-25] MEDS ORDERED: GuaiFENesin 100 MG/5 ML 5ML UDC PO PRN (02:20)
[2023-11-25] MEDS ORDERED: Bisacodyl 10 MG Supp PR PRN (02:20)
[2023-11-25 03:41] VITALS: BP 141/91
--- NOTE | 2023-11-25 04:26 | NUR ---
0200 PT LYING IN BED, EYES CLOSED, APPEARS TO BE RESTING. BREATHING IS EVEN, UNLABORED. NO APPARENT SIGNS OF DISTRESS. CALL LIGHT IS IN REACH.
--- NOTE | 2023-11-25 04:27 | NUR ---
0330 ASSISTED HELPDESK SPECIALIST IN TURNING AND CHANGING PT. PT TOLERATED WELL. NO APPARENT SIGNS OF DISTRESS. CALL LIGHT IS IN REACH.
--- NOTE | 2023-11-25 04:27 | NUR ---
PT IS AAO X 4, ON 1 1/2 L NC AT 97%. DENIES SOB BUT REPORTS CHEST TIGHTNESS HE RELATED TO RESPIRATORY. LAST BS WAS 152.
--- NOTE | 2023-11-25 05:37 | NUR ---
PT LYING IN BED, EYES CLOSED, APPEARS TO BE RESTING. BREATHING IS EVEN, UNLABORED. NO APPARENT SIGNS OF DISTRESS. CALL LIGHT IS IN REACH. NO OTHER CHANGES THIS SHIFT.
[2023-11-25 07:57] VITALS: BP 95/75
[2023-11-25] MEDS ORDERED: Polyethylene Glycol 3350 17 gm PO SCH (09:00)
[2023-11-25] MEDS ORDERED: Polyethylene Glycol 3350 119 GM PO SCH (09:00)
[2023-11-25] MEDS ORDERED: Sennosides 8.6 MG Tab PO SCH (09:00)
[2023-11-25] MEDS ORDERED: Docusate Sodium 100 MG Cap PO SCH (09:00)
[2023-11-25 09:54] VITALS: BP 111/86
[2023-11-25] MEDS ORDERED: NYSTATIN15 GM TOP (11:39)
[2023-11-25] MEDS ORDERED: PREG75 PO (11:40)
[2023-11-25 14:53] LABS: SARS-Cov-2 (COVID-19) PCR, MMC NEGATIVE (NEGATIVE)
--- NOTE | 2023-11-25 15:20 | NUR ---
PT DISCHARGED THE PT WAS DC'D TO [facility], REPORT GIVEN TO AJ CARRASCO RN. THE PT WAS TRANSPORTED VIA GURNEY ACCOMPANIED BY [facility]BUL[facility]. BELONGINGS RELEASED TO THE PATIENT
== END 2023-11-25 15:13 | DRG 690 ==
LOC: ER 16:41 → MEDS 16:42 → ENPENDDIS 11-25 11:54 → MEDS 11-25 15:13
PROVIDERS: Emergency Medicine; Family Medicine; Student in an Organized Health Care Education/Training Program; ADMIT Student in an Organized Health Care Education/Training Program
PROC: 5A09357 Assistance with Respiratory Ventilation, Less than 24 Consecutive Hours, Continuous Positive Airway Pressure (ICD-10-PCS; principal; 2023-11-20)
DX: N39.0 Urinary tract infection, site not specified (principal); I48.20 Chronic atrial fibrillation, unspecified; I50.22 Chronic systolic (congestive) heart failure; I11.0 Hypertensive heart disease with heart failure; N40.0 Benign prostatic hyperplasia without lower urinary tract symptoms; E66.9 Obesity, unspecified; E11.9 Type 2 diabetes mellitus without complications; B37.2 Candidiasis of skin and nail; B96.4 Proteus (mirabilis) (morganii) as the cause of diseases classified elsewhere; Z88.8 Allergy status to other drugs, medicaments and biological substances; K21.9 Gastro-esophageal reflux disease without esophagitis; G47.33 Obstructive sleep apnea (adult) (pediatric); Z68.38 Body mass index [BMI] 38.0-38.9, adult
CPT/HCPCS: 36415; 80048; 80053; 81001; 82947; 83880; 84484; 85025; 85027; 87077; 87086; 87186; 93005; 93010; 94660; 94762; 96365; 96372; 97110; 97110-CQ; 97161; 97530; 99284-25; A9270; G0378; J0696; J7030; U0002

== ENCOUNTER → 2024-03-11 | Outpatient (CLI) | payer OTHER ==
[~2024-03-11] MED LIST changes: +ACET325 PO; +Aspir 8181 MG PO; +DOCU100 PO; +MELATONIN5 M1 PO; +NYSTATIN15 GM TOP
[2024-03-11 16:34] LABS: Source, Urine Clean Catch
[2024-03-11 17:18] LABS: Appearance, Urine Clear (Clear); Bilirubin, Urine Neg (Neg); Blood, Urine Neg (Neg); Color, Urine Yellow (P-Yellow); Glucose Qualitative, Urine Neg (Neg); Ketones, Urine Neg (Neg); Leukocyte Esterase, Urine Neg (Neg); Nitrite, Urine Neg (Neg); Protein, Urine 2+ (Neg); Specific Gravity, Urine 1.025 (1.003-1.022); Urobilinogen, Urine NORM (Normal)
[2024-03-11 17:29] LABS: Bacteria Few /hpf; Mucus Light (0-Heavy); Red Blood Cells, Urine 0-2 /hpf (0-2); Squamous Epithelial Cells Rare /hpf (Few); White Blood Cells, Urine 0-2 /hpf (0-5)
== END | disposition home or self-care (01) ==
LOC: LAB 16:32 → LAB SHORT 16:32
PROVIDERS: Family Medicine
DX: N39.0 Urinary tract infection, site not specified (principal)
CPT/HCPCS: 81001; 87086

== ENCOUNTER → 2024-06-01 | Outpatient (CLI) | payer OTHER ==
[2024-06-01 16:32] LABS: Source, Urine Voided
[2024-06-01 17:35] LABS: Appearance, Urine Clear (Clear); Bilirubin, Urine Neg (Neg); Blood, Urine 1+ (Neg); Color, Urine Yellow (P-Yellow); Glucose Qualitative, Urine Neg (Neg); Ketones, Urine Neg (Neg); Leukocyte Esterase, Urine Neg (Neg); Nitrite, Urine Neg (Neg); Protein, Urine 3+ (Neg); Specific Gravity, Urine 1.025 (1.003-1.022); Urobilinogen, Urine NORM (Normal)
[2024-06-01 17:47] LABS: Mucus Mod (0-Heavy); Red Blood Cells, Urine 0-2 /hpf (0-2); White Blood Cells, Urine 0-2 /hpf (0-5)
[2024-06-01 17:48] LABS: Bacteria Few /hpf; Hyaline Casts 0-2 /lpf (0-2); Squamous Epithelial Cells Few /hpf (Few)
== END | disposition home or self-care (01) ==
LOC: LAB SHORT 16:28 → LAB 16:28
PROVIDERS: Family Medicine
DX: N39.0 Urinary tract infection, site not specified (principal)
CPT/HCPCS: 81001

== ENCOUNTER 2024-06-17 15:07 | Observation (INO) | payer OTHER ==
[~2024-06-17] VITALS: Ht 167.6 cm; Wt 146.5 kg
[2024-06-17 15:53] LABS: BASOPHILS ABSOLUTE AUTO 0.07 K/mm3 (0.00-0.23); BASOPHILS PERCENT AUTO 1 % (0-2); EOSINOPHILS ABSOLUTE AUTO 0.29 K/mm3 (0.00-0.68); EOSINOPHILS PERCENT AUTO 4 % (0-6); Hematocrit 40.8 % (37.0-53.0); Hemoglobin 13.3 g/dL (13.5-17.5); IMMATURE GRAN ABSOLUTE AUTO 0.01 K/mm3 (0.00-0.10); IMMATURE GRAN PERCENT AUTO 0 % (0-1); LYMPHOCYTES ABSOLUTE AUTO 1.56 K/mm3 (0.84-5.20); LYMPHOCYTES PERCENT AUTO 21 % (21-46); MONOCYTES ABSOLUTE AUTO 0.89 K/mm3 (0.16-1.47); MONOCYTES PERCENT AUTO 12 % (4-13); Mean Corpuscular HGB 31.6 pg (26.0-34.0); Mean Corpuscular HGB Conc 32.6 g/dL (31.5-36.5); Mean Corpuscular Volume 97 fL (80-100); Mean Platelet Volume 10.4 fL (9.1-12.4); NEUTROPHILS ABSOLUTE AUTO 4.51 K/mm3 (1.96-9.15); NEUTROPHILS PERCENT AUTO 62 % (41-73); Platelet Count 230 K/mm3 (150-400); RDW Coefficient Variation 13.9 % (11.7-14.2); RDW Standard Deviation 49.2 fL (35.1-46.3); Red Blood Cell Count 4.21 M/mm3 (4.30-5.90); White Blood Cell Count 7.33 K/mm3 (4.00-11.30)
[2024-06-17 16:11] LABS: Albumin, Blood 3.3 g/dL (3.4-5.0); Albumin/Globulin Ratio 0.8 (0.8-1.8); Bilirubin, Total 0.7 mg/dL (0.1-1.0); Bun/Creatinine Ratio 28.9 (12.0-20.0); Calcium, Blood 9.1 mg/dL (8.5-10.1); Creatinine, Blood 0.66 mg/dL (0.60-1.20); Globulin, Blood 4.1 g/dL (2.2-4.0); Total Protein, Blood 7.4 g/dL (6.4-8.2)
[2024-06-17] MEDS ORDERED: Nystatin 100,000 Unit/GM CREAM 15 GM TOP ONE (17:35)
[2024-06-17] MEDS ORDERED: Furosemide 10 MG/ML 4ML Vial IV ONE (17:40)
[2024-06-17] MEDS ORDERED: Ondansetron HCl 2 MG / ML 2ML Vial IV PRN (19:10)
[2024-06-17] MEDS ORDERED: FLU VACC TS2024-25(6MOS UP)/PF 45 MCG/0.5 ML SYRINGE IM SCH (19:10)
[2024-06-17] MEDS ORDERED: DOC250 PO (19:43)
[2024-06-17] MEDS ORDERED: HYDHCL25 PO (19:46)
[2024-06-17] MEDS ORDERED: LOSA25 PO (19:47)
[2024-06-17 20:14] VITALS: BP 135/91
[2024-06-17] MEDS ORDERED: Acetaminophen 325 MG TABLET PO PRN (22:10)
[2024-06-17] MEDS ORDERED: Docusate Sodium 250 MG Cap PO PRN (22:10)
[2024-06-18 04:18] VITALS: BP 128/70
--- NOTE | 2024-06-18 05:06 | NUR ---
SAUSAGE TIER SUMMARY PT ADMITTED FROM THE ER. HE WAS UNABLE TO STAND PIVOT FROM THE STRETCHER OVER TO THE HOSPITAL BED. I ASKED HIM HOW HE WAS MANAGING AT HOME WITHOUT BEING ABLE TO STAND AND HE SAID HE "FALLS A LOT" AND THAT HE HAS A CAREGIVER 3 DAYS A WEEK AND THAT HE HAS TO CALL THE FIRE DEPARTMENT TO PICK HIM UP OFF THE FLOOR SOMETIMES. WEANED FROM 4L DOWN TO 2L. PT IS DIURESING VERY WELL, SEE I&O. HE HAS OPEN WOUNDS, RIGHT BELOW HIS BUTTOCKS ON HIS LEFT UPPER POSTERIOR THIGH. WOUNDS CLEANSED, DRIED AND MEPILEX PLACED. SEE WOUND PHOTOS IN PAPER CHART. PT MOVED FROM ROOM 348 TO 352 SO HE COULD BE IN A LIFT ROOM.
[2024-06-18 05:32] LABS: BASOPHILS ABSOLUTE AUTO 0.06 K/mm3 (0.00-0.23); BASOPHILS PERCENT AUTO 1 % (0-2); EOSINOPHILS ABSOLUTE AUTO 0.36 K/mm3 (0.00-0.68); EOSINOPHILS PERCENT AUTO 5 % (0-6); Hematocrit 39.8 % (37.0-53.0); Hemoglobin 13.1 g/dL (13.5-17.5); IMMATURE GRAN ABSOLUTE AUTO 0.03 K/mm3 (0.00-0.10); IMMATURE GRAN PERCENT AUTO 0 % (0-1); LYMPHOCYTES ABSOLUTE AUTO 1.44 K/mm3 (0.84-5.20); LYMPHOCYTES PERCENT AUTO 21 % (21-46); MONOCYTES PERCENT AUTO 14 % (4-13); Mean Corpuscular HGB 31.9 pg (26.0-34.0); Mean Corpuscular HGB Conc 32.9 g/dL (31.5-36.5); Mean Corpuscular Volume 97 fL (80-100); Mean Platelet Volume 10.9 fL (9.1-12.4); NEUTROPHILS ABSOLUTE AUTO 4.11 K/mm3 (1.96-9.15); NEUTROPHILS PERCENT AUTO 59 % (41-73); Platelet Count 219 K/mm3 (150-400); RDW Standard Deviation 49.5 fL (35.1-46.3); Red Blood Cell Count 4.11 M/mm3 (4.30-5.90)
[2024-06-18 06:04] LABS: Albumin, Blood 3.2 g/dL (3.4-5.0); Albumin/Globulin Ratio 0.8 (0.8-1.8); Bilirubin, Total 0.9 mg/dL (0.1-1.0); Bun/Creatinine Ratio 24.1 (12.0-20.0); Calcium, Blood 9.5 mg/dL (8.5-10.1); Creatinine, Blood 0.83 mg/dL (0.60-1.20); Globulin, Blood 3.8 g/dL (2.2-4.0); Potassium, Blood 3.7 mmol/L (3.5-5.5)
[2024-06-18 07:44] VITALS: BP 148/100
[2024-06-18] MEDS ORDERED: Metoprolol Succinate 50 MG TABCR PO SCH (09:00)
[2024-06-18] MEDS ORDERED: Spironolactone 25 MG Tab PO SCH (09:00)
[2024-06-18] MEDS ORDERED: Losartan Potassium 25 MG Tab PO SCH (09:00)
[2024-06-18] MEDS ORDERED: Spironolactone 12.5 MG TAB PO SCH (09:00)
[2024-06-18] MEDS ORDERED: Furosemide 10 MG / ML 2ML Vial IV SCH (09:00)
[2024-06-18] MEDS ORDERED: Aspirin 81 MG TabEC PO SCH (09:00)
[2024-06-18] MEDS ORDERED: Finasteride 5 MG Tab PO SCH (09:00)
[2024-06-18] MEDS ORDERED: Apixaban 5 MG Tab PO SCH (09:00)
[2024-06-18] MEDS ORDERED: Insulin Human Lispro 100 Units/ML 3ML Syringe SC SCH (11:30)
[2024-06-18] MEDS ORDERED: Empagliflozin 10 MG TAB PO SCH (12:00)
--- NOTE | 2024-06-18 12:51 | NUR ---
NOTE PT REF BLOOD SUGAR CHECKED. HE REPORTED"I HAVE SUCH BAD NEUROPATHY THAT i DONT WANT TO BE POKED." NOTIFIED DR. HYDE, REPORTED THATS OK JUST REPORT REFUSED AND STILL GIVE JARDIANCE. ALSO NOTIFIED OF RASH IN GROIN, ASKED FOR ORDER OF NYSTATIN POWDER, REPORTED WILL ENTER INTO COMP.
[2024-06-18 15:04] VITALS: BP 119/83
--- NOTE | 2024-06-18 17:38 | NUR ---
SHIFT SUMMARY PT A&OX4. PT ADMITTED DUE TO HYPOXIS CHF ATRIAL FIB. PT ON TELE. PT REPORTS NO CHEST PAIN. PT HAS SOB WHEN LAYING FLAT. PT REPORTS NO PAIN. PT ON 2L O2 VIA N/C, SPO2 IS 95% CONT. PULSE OX ON. PT ON ELIQUIS FOR AFIB. PT NOW HAS NYSTATIN POWDER ORDERED FOR GROIN. PT REPORTS SEVERE NEUROPATHY, DECLINED BEING POKED FOR BLOOD SUGAR CHECK. INSULIN NOT GIVEN. REMOVED MALE PERWICK. PT USES URINAL. PT WORKED WITH PHYSICAL THERAPY TODAY. PHYSICAL THERAPY IS RECOMMENDING SNF. PT IS WEAK BUT ABLE TO AMBULATE WITH MIN-MOD ASSIST WITH FWW AND GB. PT IN BED. BED IN LOWEST POSITION, CALL LIGHT IN REACH. PT VSS. BLE HAVE EDEMA, WHEEPING, OPEN TO AIR.
[2024-06-18 20:18] VITALS: BP 133/86
[2024-06-18] MEDS ORDERED: Miconazole Nitrate 2% 85 GM PWD TOP SCH (21:00)
[2024-06-18] MEDS ORDERED: Atorvastatin 10 MG Tab PO SCH (21:00)
[2024-06-18] MEDS ORDERED: Pregabalin 75 MG Cap PO SCH (21:00)
[2024-06-18] MEDS ORDERED: Melatonin 5 MG Tablet PO SCH (21:00)
[2024-06-19 03:28] VITALS: BP 150/88
--- NOTE | 2024-06-19 04:39 | NUR ---
WIRE GALVANIZER SUMMARY PT REPORTS THAT HIS BREATHING FEELS BETTER THAN WHEN HE FIRST CAME INTO THE HOSPITAL. WE ARE WORKING ON WEANING HIS OXYGEN ABLE. HE IS NOW MOSTLY ON ROOM AIR, REQUIRING 2L ONLY BRIEFLY WITH DEEP SLEEP, ON CONT SPO2. PT IS BARELY ABLE TO STAND AND IT DOESNT APPEAR THAT HE WOULD BE SAFE BY HIMSELF IN HIS HOME ENVIRONMENT. BED ALARM IS ON AND CALL LIGHT IS WITHIN REACH.
--- NOTE | 2024-06-19 04:44 | NUR ---
REFUSING BLOOD SUGARS PT WOULD LIKE TO DECLINE ANY FUTURE CBGS. HE SAYS HIS NEUROPATHY IN HIS HANDS HAS GOTTEN SO BAD THAT A FINGER POKE CAN LEAVE HIM IN PAIN FOR SEVERAL HOURS.
[2024-06-19 06:37] LABS: Albumin, Blood 3.2 g/dL (3.4-5.0); Anion Gap 10 mmol/L (3-11); Blood Urea Nitrogen 18 mg/dL (8-24); Bun/Creatinine Ratio 21.8 (12.0-20.0); CO2, Blood 30 mmol/L (21-32); Calcium, Blood 9.7 mg/dL (8.5-10.1); Chloride, Blood 103 mmol/L (98-108); Creatinine, Blood 0.83 mg/dL (0.60-1.20); Glomerular Filtration Rate 91 (60-); Glucose, Blood 117 mg/dL (70-99); Magnesium, Blood 2.3 mg/dL (1.6-2.4); Phosphorus, Blood 3.5 mg/dL (2.5-4.9); Potassium, Blood 3.8 mmol/L (3.5-5.5); Sodium, Blood 139 mmol/L (136-145)
[2024-06-19 07:20] VITALS: BP 122/99
--- NOTE | 2024-06-19 15:33 | NUR ---
11:30 TELE CALLED. STATES CONTINUES IN AFIB. BUT DROPPED TO LOW 40'S FOR 1 MINUTE. PT RETURNED TO NORMAL 80-90'S. SPOKE TO PT. ASYMPTOMATIC. PT TALKATIVE, PLEASANT, DENIES ANY SYMPTOMS.
[2024-06-19 15:35] VITALS: BP 125/72
--- NOTE | 2024-06-19 15:44 | NUR ---
INITIAL VISIT: MET WITH PATIENT IN HIS ROOM. UPON ENETERING PT IS EATING HIS LUNCH. HE AWAKE AND A/O X4. SMILES WITH INTERACTION. HE IS IN NO APPARENT DISTRESS. DENIES PAIN. REPORTS HIS ONLY SYMPTOM IS SOB AT TIMES BECAUSE OF HIS HEART FAILURE. DISCUSS SYMPTOM MANAGEMENT AND ADHERENCE TO MEDICATIONS. PT REPORTS HE STOPPED TAKING HIS LASIX BECAUSE HE DID NOT WANT TO HAVE AN ACCIDENT IF HE WENT OUT OF HIS HOME. DISCUSSED WEARING ABORBENT PADS AND PLANNING TRIPS THAT HAVE ACCESS TO BATHROOMS. PT V/U. PT DENIES NEEDING ANY LITERATURE ABOUT CHF. DISCUSSED POLST/AD WITH PT. 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 PT REPORTS HE WILL COMPLETE A NEW ONE. DISCUSSED POLST FORM AND PT AGREEABLE TO COMPLETING POLST. PT CHOOSES TO BE CPR/FULL MEASURES AT THIS TIME. POLST COMPLETED AND AWAITING MD SIGNATURE. PT DENIES ANY FURTHER NEEDS/QUESTIONS.
--- NOTE | 2024-06-19 17:48 | NUR ---
PT PLEASANT TODAY. STATES SOME PAIN IN BACK, BUT NOT BAD. DID NOT WANT MED FOR THIS YET. AGREED TO ASK WHEN DESIRES. FULL BED CHANGE THIS DAY X2 TODAY R/T URINE. PT NOW ABLE TO STAND AND PIVOT WITH FWW AND GAIT BELT. 2 ASST. DAUGHTER IN TO VISIT AND ASKING TO HAVE DR SYLVESTER HER. CONCERNS RELATED TO CONTINUED VISITS TO HOSPITAL AND WHAT LONGER TERM PLAN MIGHT BE. PT STATES HE DOES NOT WANT TO TAKE SOME PILLS WHEN HE HAS GIRLFRIEND OVER. EDUCATED KEEPING ON MED REGIMIN SO TO AVOID NEEDING TO COME TO HOSPITAL. NO FURHTER CONCERNS NOTED. BED IN LOW POSITION, CALL LITE IN REACH, CALLS APPROP
[2024-06-19 19:17] VITALS: BP 115/72
[2024-06-20 03:23] VITALS: BP 118/82
--- NOTE | 2024-06-20 06:12 | NUR ---
DIRECTOR OF ASSISTED LIVING SUMMARY PT REPORTS HIS BREATHING CONTINUES TO IMPROVE COMPARED TO INITIAL PRESENTATION TO THE ER. HE IS NO LONGER REQUIRING OXYGEN EXCEPT FOR WITH DEEP SLEEP RELATED TO HIS SLEEP APNEA. HE HAS REFUSED TO USE THE HOSPITAL CPAP AND HAS BEEN USING 2L O2 WITH SLEEP ONLY. HE IS MOBILIZING A LITTLE EASIER, ABLE TO STAND/PIVOT TO CHAIR AND BSC WITH 2 PERSON ASSIST. PLEASE NOTE THAT SINCE ADMISSION, PT HAS HAD SEVERAL INCONTINENT EPISODES AND HIS I&O BALANCE IS NOT ACCURATE. BED ALARM IS ON AND CALL LIGHT IS WITHIN REACH.
[2024-06-20 07:54] VITALS: BP 117/95
--- NOTE | 2024-06-20 09:37 | NUR ---
spoke to dr morales re bp 117/95. okay give all bp meds and lasix this am.
--- NOTE | 2024-06-20 13:24 | NUR ---
OWEN SIGNED BY AND FAXED TO POLST REGISTRY. COPY PLACED IN CHART AND ORIGINAL GAVE TO
[2024-06-20 16:38] VITALS: BP 111/100
--- NOTE | 2024-06-20 16:44 | NUR ---
PT GETTING ON HIS PHONE AND HIS COMPUTER TODAY. CONDOM CATH MAINTAINING SO FAR. NO FAMILY NOTED TODAY VISITORS. DID HAVE LARGE B/M TODAY, AMBULATING 1 ASST TO BSC. FWW GAIT BELT. NO FURTHER CONCERNS NOTED. BED IN LOW POSITION, CALL LITE IN REACH, CALLS APPROP
[2024-06-20 19:17] VITALS: BP 110/68
[2024-06-21 03:00] VITALS: BP 112/55
--- NOTE | 2024-06-21 06:03 | NUR ---
LIFESTYLE COORDINATOR SUMMARY' PT REPORTS HIS BREATHING CONTINUES TO IMPROVE. HE IS MOBILIZING A LITTLE EASIER COMPARED TO YESTERDAY, ABLE TO TRANSFER FROM BED TO CHAIR AND CHAIR TO BED WITH X2 ASSIST. PT IS NO LONGER REQUIRING OXYGEN BUT HAS SLEEP APNEA AND NEEDS 2L WITH SLEEP BECAUSE HE CANNOT TOLERATE USING A HOSPITAL CPAP.
[2024-06-21 06:14] LABS: Anion Gap 7 mmol/L (3-11); Blood Urea Nitrogen 24 mg/dL (8-24); Bun/Creatinine Ratio 28.1 (12.0-20.0); CO2, Blood 32 mmol/L (21-32); Calcium, Blood 9.1 mg/dL (8.5-10.1); Chloride, Blood 101 mmol/L (98-108); Creatinine, Blood 0.86 mg/dL (0.60-1.20); Glomerular Filtration Rate 90 (60-); Glucose, Blood 111 mg/dL (70-99); Phosphorus, Blood 3.7 mg/dL (2.5-4.9); Potassium, Blood 3.8 mmol/L (3.5-5.5); Sodium, Blood 136 mmol/L (136-145)
[2024-06-21 07:36] VITALS: BP 101/74
[2024-06-21] MEDS ORDERED: Furosemide 10 MG/ML 4ML Vial IV SCH (09:00)
[2024-06-21] MEDS ORDERED: MICONAZOLE NITR85 GM (12:47)
--- NOTE | 2024-06-21 14:32 | NUR ---
THIS RN CALLED [facility] TO GIVE REPORT AND SPOKE TO AMADEO HUTCHINSON.
[2024-06-21 15:10] VITALS: BP 107/69
--- NOTE | 2024-06-21 15:19 | NUR ---
DISCHARGE NOTE PT DISCHARGED TO SNF AT 1515. PT A&OX4, VSS, AMB W/ 2P ASSIST, TOLERATING PO, VOIDING, AND DENIED PAIN. BELONGINGS WERE RETURNED AND DISCHARGE PACKET GIVEN TO TRANSPORT. PT ESCOURTED OUT VIA W/C BY TRANSPORT.
== END 2024-06-21 15:19 ==
LOC: ER 15:07 → ERHOLD 15:08 → MEDS 15:08
PROVIDERS: Internal Medicine; Physician Assistant; ADMIT Internal Medicine
DX: I11.0 Hypertensive heart disease with heart failure (principal); I50.23 Acute on chronic systolic (congestive) heart failure; J96.21 Acute and chronic respiratory failure with hypoxia; E11.42 Type 2 diabetes mellitus with diabetic polyneuropathy; I48.19 Other persistent atrial fibrillation; G47.33 Obstructive sleep apnea (adult) (pediatric); N40.0 Benign prostatic hyperplasia without lower urinary tract symptoms; G47.00 Insomnia, unspecified; Z79.899 Other long term (current) drug therapy; Z91.199 Patient's noncompliance with other medical treatment and regimen due to unspecified reason
CPT/HCPCS: 36415; 71046; 80053; 80069; 83735; 83880; 84484; 85025; 93005; 93010; 94762; 96374; 97110; 97161; 97166; 97530; 99285-25; A9270; J1940

== ENCOUNTER 2025-01-17 09:06 | Emergency (ER) | payer OTHER ==
[~2025-01-17] VITALS: Ht 177.8 cm; Wt 142.0 kg
[~2025-01-17 09:06] MED LIST changes: +DOC250 PO; +LOSA25 PO; +MICONAZOLE NITR85 GM
[2025-01-17 10:21] LABS: BASOPHILS ABSOLUTE AUTO 0.07 K/mm3 (0.00-0.23); BASOPHILS PERCENT AUTO 1 % (0-2); EOSINOPHILS ABSOLUTE AUTO 0.52 K/mm3 (0.00-0.68); EOSINOPHILS PERCENT AUTO 7 % (0-6); Hematocrit 45.2 % (37.0-53.0); Hemoglobin 14.7 g/dL (13.5-17.5); IMMATURE GRAN ABSOLUTE AUTO 0.04 K/mm3 (0.00-0.10); IMMATURE GRAN PERCENT AUTO 1 % (0-1); LYMPHOCYTES ABSOLUTE AUTO 1.53 K/mm3 (0.84-5.20); LYMPHOCYTES PERCENT AUTO 20 % (21-46); MONOCYTES ABSOLUTE AUTO 1.15 K/mm3 (0.16-1.47); MONOCYTES PERCENT AUTO 15 % (4-13); Mean Corpuscular HGB Conc 32.5 g/dL (31.5-36.5); Mean Corpuscular Volume 95 fL (80-100); NEUTROPHILS ABSOLUTE AUTO 4.52 K/mm3 (1.96-9.15); NEUTROPHILS PERCENT AUTO 58 % (41-73); NRBC ABSOLUTE 0.00 K/mm3 (0.00-0.02); NRBC Auto 0.0 /100 WBC (0.0-0.2); Platelet Count 279 K/mm3 (150-400); RDW Coefficient Variation 13.8 % (11.7-14.2); RDW Standard Deviation 48.7 fL (35.1-46.3)
[2025-01-17 10:41] LABS: Alanine Aminotransfer (ALT/SGP 22.0 U/L (12-78); Albumin, Blood 3.1 g/dL (3.4-5.0); Albumin/Globulin Ratio 0.7 (0.8-1.8); Anion Gap 6.0 mmol/L (3-11); Aspartate Aminotrans (AST/SGOT 19.0 U/L (12-37); Bilirubin, Total 0.7 mg/dL (0.1-1.0); Blood Urea Nitrogen 17.0 mg/dL (8-24); CO2, Blood 31.0 mmol/L (21-32); Calcium, Blood 9.0 mg/dL (8.5-10.1); Chloride, Blood 106.0 mmol/L (98-108); Creatinine, Blood 0.73 mg/dL (0.60-1.20); Globulin, Blood 4.5 g/dL (2.2-4.0); Glucose, Blood 125.0 mg/dL (70-99); Potassium, Blood 4.3 mmol/L (3.5-5.5); Sodium, Blood 139.0 mmol/L (136-145); Total Protein, Blood 7.6 g/dL (6.4-8.2)
[2025-01-17] MEDS ORDERED: CefTRIAXone Sodium 1,000 MG in NS 100 ML IV ONE (10:50)
[2025-01-18] MEDS ORDERED: ALEVAZOL56.7 G1 TOP (11:44)
[2025-01-18] MEDS ORDERED: CLOBETASOL EMOL15 G1 TOP (11:44)
[2025-01-18] MEDS ORDERED: FURO40 PO (11:45)
[2025-01-18] MEDS ORDERED: FINA5 PO (11:45)
[2025-01-18] MEDS ORDERED: SPIR25 PO (11:45)
[2025-01-18] MEDS ORDERED: ARTIFICIAL TEA1 EAC1 BOTHEYES (11:46)
[2025-01-18] MEDS ORDERED: ELIQUIS5 M2 PO (11:46)
[2025-01-18] MEDS ORDERED: Hair, Skin & N1 EACH PO (11:46)
[2025-01-18] MEDS ORDERED: [UNRECOGNIZED DRUG - OTHER] TOP (11:47)
[2025-01-18] MEDS ORDERED: PREG75 PO (11:48)
[2025-01-18] MEDS ORDERED: METO50ER PO (11:48)
[2025-01-18] MEDS ORDERED: ACET500 PO (11:49)
[2025-01-18] MEDS ORDERED: LOSA25 PO (11:49)
[2025-01-18] MEDS ORDERED: JARDIANCE10 MG PO (11:49)
[2025-01-18] MEDS ORDERED: Magnesium Hydroxide Conc 10 ML UDC PO PRN (12:55)
[2025-01-18 13:17] VITALS: BP 155/88
[2025-01-18] MEDS ORDERED: CefTRIAXone Sodium 1,000 MG in NS 100 ML IV SCH (13:30)
[2025-01-18] MEDS ORDERED: AZIT500 PO (15:47)
[2025-01-18] MEDS ORDERED: CEFTRIAXON1 GM/50 M1 IV (15:49)
[2025-01-19] MEDS ORDERED: Enoxaparin 40 MG/0.4 ML SYR SC SCH (09:00)
[2025-01-19] MEDS ORDERED: CeFAZolin Sodium 1,000 MG in NS 50 ML IV SCH (09:00)
== END 2025-01-18 15:45 | disposition home or self-care (01) ==
LOC: ER 09:06
PROVIDERS: Emergency Medicine
DX: I50.9 Heart failure, unspecified (principal); J18.9 Pneumonia, unspecified organism; E11.9 Type 2 diabetes mellitus without complications; J44.9 Chronic obstructive pulmonary disease, unspecified; I48.91 Unspecified atrial fibrillation; Z88.8 Allergy status to other drugs, medicaments and biological substances; Z79.82 Long term (current) use of aspirin; Z79.899 Other long term (current) drug therapy; Z87.891 Personal history of nicotine dependence
CPT/HCPCS: 71046; 80053; 83690; 83880; 84484; 85025; 93005; 93010; 96365; 96375; 97162; 97530; 99285-25; A6590; A9270; J0696; J1938